=== PATIENT | male | born 1995 | race Caucasian/White ===

== ENCOUNTER 2018-11-29 19:55 | Emergency (ER) | payer OTHER ==
[~2018-11-29] VITALS: Ht 180.3 cm; Wt 63.5 kg
[2018-11-30] MEDS ORDERED: ZANTAC300 MG PO (03:46)
== END 2018-11-30 04:06 | disposition home or self-care (01) ==
LOC: ER 19:55
DX: R07.89 Other chest pain (principal); K21.9 Gastro-esophageal reflux disease without esophagitis

== ENCOUNTER 2019-03-04 08:46 | Outpatient (CLI) | payer OTHER ==
[~2019-03-04 08:46] MED LIST: ZANTAC300 MG PO
== END 2019-03-04 08:58 | disposition home or self-care (01) ==
LOC: RX STUDY 08:46
DX: R10.9 Unspecified abdominal pain (principal)

== ENCOUNTER 2021-06-07 07:24 | Outpatient (CLI) | payer OTHER | END 2021-06-07 07:35 | disposition home or self-care (01) | LOC: MRI 07:24 | PROVIDERS: ATTEND Neuromusculoskeletal Medicine & OMM | DX: G93.89 Other specified disorders of brain (principal); M50.20 Other cervical disc displacement, unspecified cervical region; R25.8 Other abnormal involuntary movements; M50.30 Other cervical disc degeneration, unspecified cervical region | CPT/HCPCS: 70553; 72141 ==